=== PATIENT | female | born 1995 | race Caucasian/White ===

== ENCOUNTER 2017-02-22 10:04 | Emergency (ER) | payer SELFPAY | END 2017-02-22 11:19 | disposition home or self-care (01) | LOC: SCSER 10:04 | DX: J02.9 Acute pharyngitis, unspecified (principal); J30.1 Allergic rhinitis due to pollen; F17.210 Nicotine dependence, cigarettes, uncomplicated | CPT/HCPCS: 87081; 87430; 99283 ==